=== PATIENT | female | born 1965 | race Asian ===

== ENCOUNTER 2018-08-27 10:17 | Emergency (ER) | payer OTHER ==
[~2018-08-27] VITALS: Ht 157.5 cm; Wt 64.5 kg
[2018-08-27 10:19] VITALS: Ht 157.5 cm; Wt 64.5 kg
[2018-08-27] MEDS ORDERED: ONDANSETRON 4 MG INJ IV STA (13:24)
[2018-08-27] MEDS ORDERED: SOD CHLORIDE 0.9% 500 ML IV STA (13:24)
[2018-08-27] MEDS ORDERED: LIDOCAINE/MYLANTA 40 ML BTL PO STA (13:24)
[2018-08-27] MEDS ORDERED: FAMOTIDINE 20 MG INJ IV STA (13:24)
[2018-08-27] MEDS ORDERED: BELLADONNA/PHENOBARBITAL TAB PO STA (13:24)
[2018-08-27] MEDS ORDERED: RANI150T5 PO (13:41)
[2018-08-27] MEDS ORDERED: ATOR10TA65 PO (13:41)
[2018-08-27] MEDS ORDERED: LORA10TA3 PO (13:42)
[2018-08-27 14:00] VITALS: BP 116/74; PULSE 67; RESP 16
--- NOTE | 2018-08-27 14:04 | ERD ---
ER Documentation Chief Complaint Chief Complaint abdominal pain and nausea x 4 days HPI This is a 52-year-old female with a past medical history of hyperlipidemia, GERD on ranitidine, previous appendectomy who is presenting with 4 days of waxing and waning aching burning epigastric pain with nausea and a few episodes of nonbilious nonbloody vomiting. The patient is continued to take her ranitidine without significant improvement of her symptoms. The patient denies any constipation or diarrhea. She denies any black or bloody or tarry stools. She denies any dysuria hematuria urgency or frequency. She denies any vaginal ble eding or burning or discharge or pain. She does not believe she could have a sexually transmitted infection. She does not believe she could be . The patient denies feeling sick recently. The patient denies fever or chills. The patient has had no headache or vision changes. The patient does not endorse neck or back pain. The patient denies lightheadedness or dizziness. The patient has had no chest pain or trouble breathing. The patient has had no focal deficits. The patient has had no weakness or numbness or tingling to the face or extremities. ROS All systems reviewed and are negative except as per history of present illness. Medications Home Meds Reported Medications Loratadine* (Loratadine*) 10 Mg Tablet, 10 MG PO DAILY, #30 TAB 08/27/18 Ranitidine Hcl* (Ranitidine Hcl*) 150 Mg Tablet, 150 MG PO Q12, #60 TAB 08/27/18 Atorvastatin Calcium (Atorvastatin Calcium) 10 Mg Tablet, 10 MG PO QHS, #30 TAB 08/27/18 Allergies Allergies: Coded Allergies: No Known Allergy (Unverified , 08/27/18) PMhx/Soc History of Surgery: Yes (Appendectomy) Anesthesia Reaction: No Hx Neurological Disorder: No Hx Respiratory Disorders: No Hx Cardiac Disorders: Yes (Hyperlipidemia) Hx Psychiatric Problems: No Hx Miscellaneous Medical Probl: Yes (GERD, seasonal allergies.) Hx Alcohol Use: No Hx Substance Use: No Hx Tobacco Use: No Smoking Status: Never smoker FmHx Family History: No diabetes Physical Exam Vitals Vital Signs Date Temp Pulse Resp B/P (MAP) Pulse Ox O2 O2 Flow FiO2 Time Delivery Rate 08/27/18 76 16 126/76 98 Room Air 13:00 (93) 08/27/18 98.2 76 18 129/72 100 10:19 (91) Physical Exam Const: No acute distress Head: Atraumatic Eyes: Normal Conjunctiva ENT: Normal External Ears, Nose and Mouth. Neck: Full range of motion. No meningismus. Resp: Clear to auscultation bilaterally Cardio: Regular rate and rhythm, no murmurs Abd: Soft, non distended. Epigastric tenderness. No rebounding. No guarding. Normal bowel sounds Skin: No petechiae or rashes Back: No midline or flank tenderness Ext: No cyanosis, or edema Neur: Awake and alert Psych: Normal Mood and Affect Result Diagram: 08/27/18 1127 08/27/18 1127 Results 24 hrs Laboratory Tests Test 08/27/18 11:27 White Blood Count 5.1 10^3/ul Red Blood Count 4.53 10^6/ul Hemoglobin 13.7 g/dl Hematocrit 40.9 % Mean Corpuscular Volume 90.3 fl Mean Corpuscular Hemoglobin 30.2 pg Mean Corpuscular Hemoglobin Concent 33.5 g/dl Red Cell Distribution Width 11.9 % Platelet Count 243 10^3/UL Mean Platelet Volume 8.7 fl Immature Granulocytes % 0.200 % Neutrophils % 49.1 % Lymphocytes % 37.5 % Monocytes % 9.1 % Eosinophils % 3.7 % Basophils % 0.4 % Nucleated Red Blood Cells % 0.0 /100WBC Immature Granulocytes # 0.010 10^3/ul Neutrophils # 2.5 10^3/ul Lymphocytes # 1.9 10^3/ul Monocytes # 0.5 10^3/ul Eosinophils # 0.2 10^3/ul Basophils # 0.0 10^3/ul Nucleated Red Blood Cells # 0.0 10^3/ul Urine Color YELLOW Urine Clarity CLEAR Urine pH 7.0 Urine Specific Kimper 1.013 Urine Ketones NEGATIVE mg/dL Urine Nitrite NEGATIVE mg/dL Urine Bilirubin NEGATIVE mg/dL Urine Urobilinogen NEGATIVE mg/dL Urine Leukocyte Esterase NEGATIVE Torsten/ul Urine Hemoglobin NEGATIVE mg/dL Urine Glucose NEGATIVE mg/dL Urine Total Protein NEGATIVE mg/dl Sodium Level 143 mmol/L Potassium Level 5.2 mmol/L Chloride Level 106 mmol/L Carbon Dioxide Level 27 mmol/L Anion Gap 10 Blood Urea Nitrogen 15 mg/dl Creatinine 0.52 mg/dl Est Glomerular Filtrat Rate mL/min > 60 mL/min Glucose Level 92 mg/dl Calcium Level 9.9 mg/dl Total Bilirubin 0.9 mg/dl Direct Bilirubin 0.00 mg/dl Indirect Bilirubin 0.9 mg/dl Aspartate Amino Transf (AST/SGOT) 43 IU/L Alanine Aminotransferase (ALT/SGPT) 10 IU/L Alkaline Phosphatase 100 IU/L Total Protein 9.2 g/dl Albumin 4.8 g/dl Globulin 4.40 g/dl Albumin/Globulin Ratio 1.09 Lipase 77 U/L Current Medications Medications Dose Sig/Matthias Start Time Status Last (Trade) Ordered Route PRN Stop Time Admin Dose Reason Admin Sodium 500 ml @ Q1H STAT 08/27/18 08/27/18 Chloride 500 mls/hr IV 13:24 08/27/18 13:33 14:23 Ondansetron 4 mg ONCE STAT 08/27/18 DC 08/27/18 HCl (Zofran IV 13:24 08/27/18 13:33 Inj) 13:26 Famotidine 20 mg ONCE STAT 08/27/18 DC 08/27/18 (Pepcid Iv) IV 13:24 08/27/18 13:33 13:26 40 ml ONCE STAT 08/27/18 DC 08/27/18 Miscellaneous PO 13:24 08/27/18 13:33 Medication 13:26 (Gi Cocktail (2)) Belladonna/ 2 tab ONCE STAT 08/27/18 DC 08/27/18 Phenobarbital PO 13:24 08/27/18 13:33 () 13:26 Procedures/MDM MDM The patient's presentation warrants further investigation. Previous medical records, if available, were reviewed. LABS The patient's laboratory testing was obtained and reviewed. No emergent treatment was required unless described below. CBC: No E/o systemic infection or severe anemia or thrombocytopenia Chemistry: No E/o severe acidosis or alkalosis or renal failure or liver disease or diabetic ketoacidosis Lipase: No E/o pancreatitis Urine: No E/o acute infection or hematuria TREATMENT/DISPOSITION The patient presents with epigastric pain. This is consistent with her previous GERD. Gastritis versus PUD are also possibilities. The patient was treated with IV fluids, Zofran, Pepcid and a GI cocktail with some improvement of her pain. I do not suspect viscus perforation. The patient presents with abdominal pain. The patient does not have any evidence of peritonitis. The patient does not have clinical symptoms concerning for mesenteric ischemia or ischemic colitis. The patient does not have right upper quadrant tenderness, and I have low suspicion for gallstones, cholecystitis or biliary colic. The patient does not have left upper quadrant tenderness. I have low suspicion for pancreatitis. Additionally, the patient had a previous appendectomy. I do not suspect appendicitis. The patient does not have suprapubic tenderness. I have decreased suspicion for cystitis. The patient does not have any left lower quadrant tenderness, and I have low suspicion for diverticulosis or diverticulitis. The patient does not have any flank tenderness. The patient does not have gross hematuria. I have decreased suspicion for nephrolithiasis or renal colic. The patient does not have any palpable pulsatile mass or severe abdominal pain radiating to the back. I have low suspicion for aortic aneurysm, dissection or rupture. The patient is afebrile with normal vital signs. I do not suspect a systemic infection. DISCHARGE Upon reevaluation of the patient, symptoms have improved. No emergent diagnoses were identified. At this time, I feel that the patient stable for discharge. The patient was instructed to follow-up with a primary care physician in 1-3 days. The patient will be given strict precautions with which to return to the emergency department. Prescriptions: Zofran, Prilosec The patient's blood pressure was elevated at greater than 120/80 while in the emergency department. The patient was otherwise stable with no evidence of hypertensive urgency or emergency. The patient does not require admission for blood pressure control. I have discussed with the patient the risks of hypertension. I have instructed the patient to return to the ER for any new or worsening symptoms including chest pain, shortness of breath, headache, blurred vision, confusion, nausea, vomiting or LOC. I have advised the patient to follow up with the primary care physician for outpatient monitoring and treatment for hypertension in 1-3 days. Disclaimer: Inadvertent spelling and grammatical errors are likely due to EHR/dictation software use and do not reflect on the overall quality of patient care. Note that the electronic time recorded on this note does not necessarily reflect the actual time of the patient encounter. Departure Diagnosis: Primary Impression: Epigastric pain Additional Impression: Nausea & vomiting Vomiting type: unspecified Vomiting Intractability: non-intractable Qualified Codes: R11.2 - Nausea with vomiting, unspecified Condition: Stable Patient Instructions: Epigastric Pain (Uncertain Cause), Nausea and Vomiting- Adult Additional Instructions: Thank you for for coming to [facility] for your care today. Please ask your nurse or provider if you have questions about your care today and do not leave until all your questions have been answered. Please use any medications given as directed and follow-up with your doctor (or the doctor you were referred to) in the next 1-3 days. If you do not have a primary care doctor you may follow up at the [facility] or community health (listed below). You may also use motrin and tylenol as needed for fever and/or pain unless instructed otherwise by your provider or nurse. Indications for more urgent foll ow-up have been discussed, but you may return to the Emergency Department at ANY time for any worrisome or worsening symptoms. If you have abdominal pain, please know that no test or exam you received is perfect and you should follow up within 8 hours for continued pain. If you had any imaging studies today, such as an X-Ray or CT Scan, these studies will be reviewed later by a radiologist. You will be called if there are important findings that were not identified today, so make sure the contact information you provided at registration is correct. If you received any narcotic pain control medicine today, such as Vicodin, Morphine or Dilaudid, your coordination and judgment may be affected for a number of hours. Please do not drive or operate heavy machinery, and you may want someone to assist you at home. If you were given a prescription for narcotic medication, be aware that it is very addictive- use sparingly and only if necessary. PLEASE SEEK FURTHER EVALUATION AND MANAGEMENT AT YOUR DOCTORS OFFICE WITHIN THE NEXT 1-3 DAYS. IT IS YOUR RESPONSIBILITY TO MAKE AN APPOINTMENT FOR FOLOW-UP CARE. IF YOU HAVE A PRIMARY DOCTOR, PLEASE CALL THEIR OFFICE TO SCHEDULE AN APPOINTMENT FOR FOLLOW UP. IF YOU DO NOT HAVE A PRIMARY DOCTOR YOU CAN CALL OUR PHYSICIAN REFERRAL HOTLINE AT IF YOU CAN NOT AFFORD TO SEE A PHYSICIAN YOU CAN CHOSE FROM THE FOLLOWING [facility] CLINICS: [facility] [address] [facility]. [facility] [address] [facility]. [facility] [address] [facility] [address] [facility] [address] [facility]. [facility]. [address] NATALIE QUEZADA MD August 27, 2018 14:04
[2018-08-27] MEDS ORDERED: ONDA4TAB8 PO (14:05)
[2018-08-27] MEDS ORDERED: OMEP40CA6 PO (14:05)
== END 2018-08-27 14:25 | disposition home or self-care (01) ==
LOC: E/R 10:17
DX: R10.13 Epigastric pain (principal); R11.2 Nausea with vomiting, unspecified
CPT/HCPCS: 36415; 80053; 81003; 83690; 85025; 96361; 96374; 96375; J2405; J7040; Z7502; Z7610